=== PATIENT | female | born 1965 | race Two or more races ===

== ENCOUNTER 2019-04-09 02:58 | Emergency (ER) | payer OTHER ==
[~2019-04-09] VITALS: Ht 149.9 cm; Wt 71.2 kg
--- NOTE | 2019-04-09 03:22 | NUR ---
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 PT REPORTS SHE TRIPPED AND FELL DOWN 3 STEPS ONTO THE R SIDE OF HER FACE. R FACE APPEARS SWOLLEN, NO BRUISING NOTED. PT DENIES LOC FOLLOWING THE EVENT BUT C/O INTERMITTENT NAUSEA SINCE THE FALL W/ NO EMESIS. PT DENIES CERVICAL NECK PAIN/TENDERNESS. VSS. BILATERAL PERRLA, RESPIRATIONS EVEN AND UNLABORED. PT DENIES C/P, SOB, DIZZINESS, HEADACHE.
--- NOTE | 2019-04-09 03:37 | NUR ---
SAVANAH KIRKPATRICK AT BEDSIDE FOR MSE.
[2019-04-09] MEDS ORDERED: MORPHINE SULFATE 4 MG/1 ML DISP.SYRIN IM ONE (04:00)
[2019-04-09] MEDS ORDERED: MORPHINE SULFATE 4 MG/1 ML DISP.SYRIN ONE (04:18)
[2019-04-09] MEDS ORDERED: OXYCODONE/APAP 5-325 MG TABLET ONE (05:48)
[2019-04-09] MEDS ORDERED: OXYCODONE/APAP 5-325 MG TABLET PO ONE (06:00)
[2019-04-09 06:01] VITALS: BP 118/62
--- NOTE | 2019-04-09 06:01 | NUR ---
Patient discharged to home in stable conditon. Written and verbal after care instructions given. Patient verbalizes understanding of instructions. ALL BELONGINGS W/ PT. PT SELF-AMBULATED W/O DIFFICULTY. PT WILL BE DRIVEN HOME BY FRIEND IN PRIVATE VEHICLE.
== END 2019-04-09 06:02 | disposition home or self-care (01) ==
LOC: ER 03:04
DX: S02.2XXA Fracture of nasal bones, initial encounter for closed fracture (principal); W10.9XXA Fall (on) (from) unspecified stairs and steps, initial encounter; Y93.89 Activity, other specified; Y92.89 Other specified places as the place of occurrence of the external cause; Y99.8 Other external cause status
CPT/HCPCS: 70450; 70486; 96372; 99284; J2270; A4663

== ENCOUNTER 2019-05-10 11:01 | Emergency (ER) | END 2019-05-10 12:12 | disposition home or self-care (01) | DX: S13.4XXA Sprain of ligaments of cervical spine, initial encounter (principal); M54.9 Dorsalgia, unspecified; V49.9XXA Car occupant (driver) (passenger) injured in unspecified traffic accident, initial encounter; Y93.89 Activity, other specified; Y92.89 Other specified places as the place of occurrence of the external cause; Y99.8 Other external cause status ==

== ENCOUNTER 2019-06-09 14:05 | Emergency (ER) | payer OTHER ==
[~2019-06-09] VITALS: Ht 152.4 cm; Wt 69.9 kg
[2019-06-09] MEDS ORDERED: ALBUTEROL SULFATE 2.5 MG/3 ML NEBU ONE (14:25)
[2019-06-09] MEDS ORDERED: BENZONATATE 100 MG CAPSULE ONE (14:30)
[2019-06-09] MEDS ORDERED: BENZONATATE 100 MG CAPSULE PO ONE (14:30)
[2019-06-09] MEDS ORDERED: ALBUTEROL SULFATE 2.5 MG/3 ML NEBU NEB ONE (14:30)
[2019-06-09] MEDS ORDERED: IBUPROFEN 800 MG TABLET ONE (14:42)
[2019-06-09] MEDS ORDERED: HYDROCODONE/APAP 5-325MG TABLET ONE (14:43)
[2019-06-09] MEDS ORDERED: HYDROCODONE/APAP 5-325MG TABLET PO ONE (14:45)
[2019-06-09] MEDS ORDERED: IBUPROFEN 800 MG TABLET PO ONE (14:45)
--- NOTE | 2019-06-09 14:54 | NUR ---
Patient discharged to home in stable conditon. Written and verbal after care instructions given. Patient verbalizes understanding of instructions.
[2019-06-09 14:55] VITALS: BP 126/58
== END 2019-06-09 14:56 | disposition home or self-care (01) ==
LOC: ER 14:07
DX: J20.9 Acute bronchitis, unspecified (principal); R51 Headache
CPT/HCPCS: A4663